=== PATIENT | male | born 1940 | race Caucasian/White ===

== ENCOUNTER → 2017-05-08 | Outpatient (CLI) | payer OTHER | END | disposition home or self-care (01) | LOC: RADPV 14:33 | PROVIDERS: ATTEND Legal Medicine | DX: I80.01 Phlebitis and thrombophlebitis of superficial vessels of right lower extremity (principal) | CPT/HCPCS: 93971 ==

== ENCOUNTER 2019-02-13 13:57 | Emergency (ER) | payer OTHER ==
[~2019-02-13] VITALS: Ht 177.8 cm; Wt 92.3 kg
[2019-02-13 14:10] LABS: GLUCOSE,POINT OF CARE 245 MG/DL (70-110)
[2019-02-13] MEDS ORDERED: LEVO25TA9 PO (14:15)
[2019-02-13] MEDS ORDERED: ATOR20TA86 PO (14:15)
[2019-02-13] MEDS ORDERED: METF-960 PO (14:15)
[2019-02-13] MEDS ORDERED: VENL25TA47 PO (14:15)
[2019-02-13] MEDS ORDERED: GABA-531 PO (14:15)
[2019-02-13 16:49] VITALS: BP 133/89
== END 2019-02-13 17:05 | disposition home or self-care (01) ==
LOC: EMS 13:58
DX: S20.211A Contusion of right front wall of thorax, initial encounter (principal); M54.5 Low back pain; I10 Essential (primary) hypertension; E03.9 Hypothyroidism, unspecified; E11.9 Type 2 diabetes mellitus without complications; Z79.84 Long term (current) use of oral hypoglycemic drugs; W18.39XA Other fall on same level, initial encounter; Y93.89 Activity, other specified; Y92.89 Other specified places as the place of occurrence of the external cause; Y99.8 Other external cause status
CPT/HCPCS: 71250; 72100; 72192; 74150; 74176

== ENCOUNTER 2020-07-23 08:51 | Emergency (ER) | payer OTHER ==
[~2020-07-23] VITALS: Ht 182.9 cm; Wt 95.5 kg
[~2020-07-23 08:51] MED LIST: ATOR20TA86 PO; GABA-1181 PO; GLIM2 PO; LEVO50 PO; METF-960 PO; TRAZ150 PO; VENL100T4 PO
[2020-07-23] MEDS ORDERED: DONE10TA8 PO (09:03)
[2020-07-23] MEDS ORDERED: GLUCAGON,HUMAN RECOMBINANT 1 MG VIAL IVP ONE (09:15)
[2020-07-23 09:44] LABS: BASOPHILS % (AUTO) 0.8 % (0.0-2.0); EOSINOPHILS % (AUTO) 7.3 % (1.0-6.0); HEMATOCRIT 47.7 % (41-53); HEMOGLOBIN 15.8 g/dL (13.5-17.5); LYMPHOCYTES # (AUTO) 1.6 K/uL (1.0-4.8); LYMPHOCYTES % (AUTO) 18.8 % (22.0-44.0); MEAN CORPUSCULAR HEMOGLOBIN 30.4 pg (26.0-34.0); MEAN CORPUSCULAR HGB CONC 33.1 G/dL (31.0-37.0); MEAN CORPUSCULAR VOLUME 92 fL (80-100); MONOCYTES # (AUTO) 0.7 K/uL (0.1-1.0); MONOCYTES % (AUTO) 8.2 % (2.0-9.0); NEUTROPHILS # (AUTO) 5.6 K/uL (1.8-7.7); NEUTROPHILS % (AUTO) 64.9 % (40.0-70.0); PLATELET COUNT (AUTO) 274 K/uL (150-450); RED BLOOD CELL COUNT(AUTO) 5.21 MIL/uL (4.50-5.90); RED CELL DISTRIBUTION WIDTH 13.9 % (11.5-14.5)
[2020-07-23] MEDS ORDERED: FentaNYL CITRATE-PF 100 MCG/2 ML VIAL IVP ONE ×2 (09:45→15:30)
[2020-07-23] MEDS ORDERED: SODIUM CHLORIDE 0.9% 100 ML ONE (09:45)
[2020-07-23] MEDS ORDERED: IOVERSOL 320 MG/ML 100 ML VIAL ONE (09:45)
[2020-07-23 09:54] LABS: ANION GAP 5 mmol/L (8-16); CALCIUM, TOTAL 9.1 mg/dL (8.8-10.5); CARBON DIOXIDE 33 mmol/L (22-29); CHLORIDE 103 mmol/L (98-107); CREATININE 1.01 mg/dL (0.60-1.30); GLOMERULAR FILTR. RATE CALC > 60 mL/min (>60); GLUCOSE,RANDOM 163 mg/dL (70-110); POTASSIUM 4.2 mmol/L (3.5-5.1); SODIUM SERUM 141 mmol/L (136-145); UREA NITROGEN, BLOOD 9 mg/dL (7-18)
[2020-07-23 10:00] LABS: ALANINE AMINOTRANSFERASE 39 U/L (12-78); ALBUMIN 4.2 g/dL (3.4-5.0); ALKALINE PHOSPHATASE 85 U/L (46-116); ASPARTATE AMINOTRANSFERASE 31 U/L (15-37); BILIRUBIN,TOTAL 0.5 mg/dL (0.1-1.0); PROTHROMBIN TIME 10.3 SEC (9.4-11.6); TOTAL PROTEIN, SERUM 7.8 g/dL (6.4-8.2)
[2020-07-23 11:02] LABS: GLUCOSE,POINT OF CARE 195 MG/DL (70-110)
[2020-07-23] MEDS ORDERED: SUCCINYLCHOLINE CHLORIDE 20 MG/ML 10 ML VIAL IV ONE (12:00)
[2020-07-23] MEDS ORDERED: ONDANSETRON HCL 4 MG/2 ML VIAL IVP ONE (12:00)
[2020-07-23] MEDS ORDERED: LIDOCAINE/PF 2% 5 ML VIAL INJ ONE (12:00)
[2020-07-23] MEDS ORDERED: PROPOFOL 1% 20 ML VIAL IVP ONE (12:00)
[2020-07-23] MEDS ORDERED: DEXAMETHASONE SOD PHOS 4 MG/ML VIAL IVP ONE (12:00)
[2020-07-23] MEDS ORDERED: SODIUM CHLORIDE 0.9% 1,000 ML ONE (12:12)
[2020-07-23 12:18] LABS: COVID AG,FIA SOURCE NASOPHARYNGEAL
[2020-07-23 12:54] LABS: GLUCOSE,POINT OF CARE 145 MG/DL (70-110)
[2020-07-23] MEDS ORDERED: SUGAMMADEX SODIUM 200 MG/2 ML VIAL IVP ONE (13:53)
[2020-07-23 18:15] VITALS: BP 120/71
[2020-07-23] MEDS ORDERED: OXYGEN THERAPY IH SCH (20:00)
== END 2020-07-23 17:50 | disposition short-term general hospital (02) ==
LOC: EMS 08:55
DX: T18.128A Food in esophagus causing other injury, initial encounter (principal); R13.10 Dysphagia, unspecified; E11.9 Type 2 diabetes mellitus without complications; I10 Essential (primary) hypertension; Z20.828 Contact with and (suspected) exposure to other viral communicable diseases; Z86.73 Personal history of transient ischemic attack (TIA), and cerebral infarction without residual deficits; Z88.5 Allergy status to narcotic agent; Z79.84 Long term (current) use of oral hypoglycemic drugs
CPT/HCPCS: 36415; 43762; 71260; 80053; 82962; 84484; 85025; 85610; 86850; 86900; 86901; 87426; 93005; 99285; C1769; J0330; J1100; J1610; J2405; J2704; J3010; J3490; J7030; J7050; Q9967

== ENCOUNTER 2023-01-29 22:02 | Emergency (ER) | payer MEDICARE, MEDICAID ==
[~2023-01-29] VITALS: Ht 182.9 cm; Wt 77.3 kg
[~2023-01-29 22:02] MED LIST changes: +DONE-51 PO; +METF-1211 PO; -METF-960 PO; -TRAZ150 PO; +TRAZ150T80 PO
[2023-01-29 22:15] VITALS: BP 134/59
== END 2023-01-30 00:31 | disposition home or self-care (01) ==
LOC: EMS 22:02
DX: S42.302A Unspecified fracture of shaft of humerus, left arm, initial encounter for closed fracture (principal); F03.90 Unspecified dementia, unspecified severity, without behavioral disturbance, psychotic disturbance, mood disturbance, and anxiety; E11.9 Type 2 diabetes mellitus without complications; E03.9 Hypothyroidism, unspecified; Z90.49 Acquired absence of other specified parts of digestive tract; Z98.890 Other specified postprocedural states; Z88.8 Allergy status to other drugs, medicaments and biological substances; W18.2XXA Fall in (into) shower or empty bathtub, initial encounter; Y93.89 Activity, other specified; Y92.89 Other specified places as the place of occurrence of the external cause; Y99.8 Other external cause status
CPT/HCPCS: 29105; 70450; 72125; 99284

== ENCOUNTER 2023-06-20 23:42 | Emergency (ER) | payer MEDICARE, MEDICAID ==
[~2023-06-20] VITALS: Ht 182.9 cm; Wt 90.0 kg
[~2023-06-20 23:42] MED LIST changes: +ATOR20TA PO; -ATOR20TA86 PO
[2023-06-20 23:55] VITALS: BP 107/82; PULSE 102; RESP 18; TEMP 98
[2023-06-21] MEDS ORDERED: METHOCARBAMOL 500 MG TABLET PO ONE (01:30)
[2023-06-21] MEDS ORDERED: OxyCODONE HCL/ACETAMINOPHEN 5-325 MG TABLET PO ONE (01:30)
[2023-06-21] MEDS ORDERED: KETOROLAC TROMETHAMINE 60 MG/2 ML VIAL IM ONE (01:30)
[2023-06-21] MEDS ORDERED: IBUP-1492 PO (02:33)
[2023-06-21] MEDS ORDERED: METH-659 PO (02:33)
[2023-06-21] MEDS ORDERED: LIDOCAINE 5% TRANSDERMAL PATCH TD ONE (02:45)
== END 2023-06-21 03:00 | disposition home or self-care (01) ==
LOC: EMS 23:42
DX: S39.012A Strain of muscle, fascia and tendon of lower back, initial encounter (principal); F03.90 Unspecified dementia, unspecified severity, without behavioral disturbance, psychotic disturbance, mood disturbance, and anxiety; E11.40 Type 2 diabetes mellitus with diabetic neuropathy, unspecified; I10 Essential (primary) hypertension; G89.29 Other chronic pain; E03.9 Hypothyroidism, unspecified; Z90.49 Acquired absence of other specified parts of digestive tract; Z98.890 Other specified postprocedural states; Z88.8 Allergy status to other drugs, medicaments and biological substances; X58.XXXA Exposure to other specified factors, initial encounter; Y93.89 Activity, other specified; Y92.89 Other specified places as the place of occurrence of the external cause; Y99.8 Other external cause status
CPT/HCPCS: 99284; 96372; J1885

== ENCOUNTER 2023-12-19 21:01 | Emergency (ER) | payer MEDICARE, MEDICAID ==
[~2023-12-19] VITALS: Ht 182.9 cm; Wt 84.0 kg
[~2023-12-19 21:01] MED LIST changes: +IBUP-1492 PO; +METH-659 PO
[2023-12-19 21:37] LABS: BASOPHILS % (AUTO) 0.9 % (0.0-2.0); HEMATOCRIT 38.6 % (41-53); HEMOGLOBIN 12.8 g/dL (13.5-17.5); LYMPHOCYTES # (AUTO) 1.2 K/uL (1.0-4.8); LYMPHOCYTES % (AUTO) 15.2 % (22.0-44.0); MEAN CORPUSCULAR HEMOGLOBIN 29.8 pg (26.0-34.0); MEAN CORPUSCULAR HGB CONC 33.3 G/dL (31.0-37.0); MEAN CORPUSCULAR VOLUME 90 fL (80-100); MONOCYTES # (AUTO) 1.1 K/uL (0.1-1.0); NEUTROPHILS # (AUTO) 3.6 K/uL (1.8-7.7); NEUTROPHILS % (AUTO) 46.2 % (40.0-70.0); PLATELET COUNT (AUTO) 249 K/uL (150-450); RED BLOOD CELL COUNT(AUTO) 4.31 MIL/uL (4.50-5.90); RED CELL DISTRIBUTION WIDTH 14.7 % (11.5-14.5); WHITE BLOOD COUNT (AUTO) 7.8 K/uL (4.5-11.0)
[2023-12-19 21:39] LABS: EOSINOPHILS % (AUTO) 23.7 % (1.0-6.0)
[2023-12-19] MEDS: IPRATROPIUM BROMIDE 0.5 MG/2.5 ML NEB SOLUTION NEB ONE (21:52)
[2023-12-19] MEDS: ALBUTEROL SULFATE 2.5 MG/0.5 ML 5 ML NEB SOLUTION NEB ONE (21:53)
[2023-12-19 21:55] VITALS: PULSE 65; RESP 18; O2SAT 95
[2023-12-19 21:55] LABS: ANION GAP 8 mmol/L (8-16); CALCIUM, TOTAL 8.6 mg/dL (8.8-10.5); CARBON DIOXIDE 31 mmol/L (22-29); CHLORIDE 104 mmol/L (98-107); CREATININE 0.74 mg/dL (0.60-1.30); GLOMERULAR FILTR. RATE CALC > 60 mL/min (>60); GLUCOSE,RANDOM 139 mg/dL (70-110); SODIUM SERUM 143 mmol/L (136-145); UREA NITROGEN, BLOOD 11 mg/dL (7-18)
[2023-12-19] MEDS: MethylPREDNISolone SOD SUCC 125 MG/2 ML VIAL IVP ONE (21:55)
[2023-12-19 22:03] LABS: TROPONIN I-HIGH SENSITIVITY 47 ng/L (<76)
[2023-12-19 22:19] LABS: ALANINE AMINOTRANSFERASE 19 U/L (12-78); ALBUMIN 3.7 g/dL (3.4-5.0); ALKALINE PHOSPHATASE 175 U/L (46-116); ASPARTATE AMINOTRANSFERASE 21 U/L (15-37); BILIRUBIN,TOTAL 0.4 mg/dL (0.1-1.0); CREATINE KINASE, TOTAL ONLY 83 U/L (39-308); TOTAL PROTEIN, SERUM 7.1 g/dL (6.4-8.2)
[2023-12-19 22:27] LABS: B-TYPE NATRIURETIC PEPTIDE 42 pg/mL (0-100)
[2023-12-19] MEDS: FUROSEMIDE 40 MG/4 ML VIAL IVP ONE (22:52)
[2023-12-19] MEDS ORDERED: KETOROLAC TROMETHAMINE 30 MG/ML VIAL IVP ONE (23:30)
[2023-12-20] VITALS: BP 124/74; PULSE 72; RESP 16; TEMP 98.4
[2023-12-20] MEDS: KETOROLAC TROMETHAMINE 15 MG/ML VIAL IVP ONE (00:16)
[2023-12-20] MEDS ORDERED: HYDR25TA2 PO (01:47)
== END 2023-12-20 02:07 | disposition home or self-care (01) ==
LOC: EMS 21:01
DX: I11.0 Hypertensive heart disease with heart failure (principal); I50.9 Heart failure, unspecified; R06.02 Shortness of breath; F03.90 Unspecified dementia, unspecified severity, without behavioral disturbance, psychotic disturbance, mood disturbance, and anxiety; E11.9 Type 2 diabetes mellitus without complications; E03.9 Hypothyroidism, unspecified; Z90.49 Acquired absence of other specified parts of digestive tract; Z98.890 Other specified postprocedural states; Z88.8 Allergy status to other drugs, medicaments and biological substances
CPT/HCPCS: 99291; 94060; 96374; 71045; 96375 ×2; 80053; 82550; 83880; 84484; 85025; 36415; 94644; 93005; J1940; J2930; Q9967; J1885